=== PATIENT | female | born 1950 | race Caucasian/White ===

== ENCOUNTER 2018-07-15 08:32 | Inpatient (IN) | payer BC, MEDICARE ==
[~2018-07-15 08:32] MED LIST: SEVOFLURANE 15 MIN
[2018-07-15] MEDS: VANCOMYCIN 1 GM (PMX) 250 ML IVPB ×2 (10:06→20:40)
[2018-07-15] MEDS ORDERED: MEPERIDINE 100 MG INJ (10:14)
[2018-07-15] MEDS ORDERED: LIDOCAINE 2% (SDV) 5 ML INJ (10:14)
[2018-07-15] MEDS ORDERED: PROPOFOL 20 ML (10:14)
[2018-07-15] MEDS ORDERED: GLYCOPYRROLATE 0.4 MG INJ ×2 (10:14→11:06)
[2018-07-15] MEDS ORDERED: ROCURONIUM 50 MG INJ (10:14)
[2018-07-15] MEDS ORDERED: SUCCINYLCHOLINE CHLORIDE 100 MG/5 ML SYG IV (10:14)
[2018-07-15] MEDS ORDERED: BUPIVACAINE 0.25% (MPF) 30 ML INJ (10:15)
[2018-07-15] MEDS ORDERED: GELATIN SIZE 100 SPONGE (10:15)
[2018-07-15] MEDS ORDERED: HEPARIN 1000 UNITS/ML 10 ML INJ (10:16)
[2018-07-15] MEDS ORDERED: PROCHLORPERAZINE 10 MG TAB PO (10:30)
[2018-07-15] MEDS ORDERED: DIPHENHYDRAMINE 25 MG CAP PO (10:30)
[2018-07-15] MEDS ORDERED: ONDANSETRON 4 MG INJ IV ×2 (10:30→13:30)
[2018-07-15] MEDS ORDERED: HYDROmorphONE 0.5 MG/0.5 ML SYG IV (10:30)
[2018-07-15] MEDS ORDERED: NALOXONE (0.4 MG/ML) INJ IV (10:30)
[2018-07-15] MEDS ORDERED: CYCLOBENZAPRINE 10 MG TAB PO (10:30)
[2018-07-15] MEDS ORDERED: HYDROCODONE/APAP (5/325) TAB PO (10:30)
[2018-07-15] MEDS: DOCUSATE SODIUM 100 MG CAP PO ×2 (10:30→20:44)
[2018-07-15] MEDS ORDERED: EPHEDrine 25 MG/5 ML SYG (11:06)
[2018-07-15] MEDS ORDERED: NEOSTIGMINE 10 MG INJ (11:06)
[2018-07-15] MEDS: CA CHLORIDE (GM) 10% 10 ML INJ (11:59)
[2018-07-15] MEDS: BUPIVACAINE 0.5%/EPI (SDV) 30 ML INJ (11:59)
[2018-07-15] MEDS: POLYMYXIN/BACITRACIN 1L IRRIG (12:00)
[2018-07-15] MEDS: THROMBIN 5000 UNIT VIAL (12:00)
[2018-07-15] MEDS ORDERED: HYDROmorphONE 1 MG/5 ML IV SYRINGE IV ×3 (13:28→13:30)
[2018-07-15] MEDS ORDERED: MIDAZOLAM 1 MG/ML 2 ML INJ IV (13:30)
[2018-07-15] MEDS ORDERED: OXYCODONE/ACETAMINOPHEN (5/325) TAB PO ×2 (13:30)
[2018-07-15] MEDS ORDERED: MEPERIDINE 25 MG INJ IV (13:30)
[2018-07-15] MEDS ORDERED: LABETALOL HCL 20MG INJ IV (13:30)
[2018-07-15] MEDS ORDERED: METOCLOPRAMIDE 10 MG INJ IV (13:30)
[2018-07-15] MEDS ORDERED: EPHEDrine SULFATE 50 MG/5 ML SYG IV (13:30)
[2018-07-15] MEDS ORDERED: FENTAnyl 50 MCG/ML VIAL IV ×2 (13:30)
[2018-07-15] MEDS ORDERED: DIPHENHYDRAMINE 50 MG INJ IV (13:30)
[2018-07-15] MEDS ORDERED: hydrALAzine 20 MG INJ IV (13:30)
[2018-07-15] MEDS ORDERED: LORAZEPAM 2 MG INJ (13:50)
[2018-07-15] MEDS: HYDROmorphONE 1 MG/5 ML IV SYRINGE IV (14:14)
[2018-07-15] MEDS: DIPHENHYDRAMINE 50 MG INJ IV (14:15)
[2018-07-15] MEDS: FENTAnyl 50 MCG/ML VIAL IV (14:15)
[2018-07-15] MEDS: LORAZEPAM 2 MG INJ IV (14:22)
[2018-07-15] MEDS ORDERED: ONDANSETRON 4 MG INJ (14:37)
[2018-07-15] MEDS ORDERED: METOCLOPRAMIDE 10 MG INJ (14:37)
[2018-07-15] MEDS: MONTELUKAST 10 MG TAB PO (20:44)
[2018-07-16] MEDS: HYDROCODONE/APAP (5/325) TAB PO ×2 (02:00→10:52)
[2018-07-16 05:11] LABS: ADD MAN DIFF? NO
[2018-07-16 05:16] LABS: ABNORMAL IP MESSAGE 1; BASOPHILS % 0.2 % (0.0-2.0); EOSINOPHILS # 0.1 10^3/ul (0.0-0.5); EOSINOPHILS % 1.2 % (0.0-7.0); LYMPHOCYTES # 0.6 10^3/ul (0.8-2.9); LYMPHOCYTES % 11.4 % (15.0-51.0); MEAN CORPUSCULAR HEMOGLOBIN 30.5 pg (29.0-33.0); MEAN CORPUSCULAR HGB CONC 33.3 g/dl (32.0-37.0); MEAN CORPUSCULAR VOLUME 91.5 fl (82.0-101.0); MEAN PLATELET VOLUME 10.7 fl (7.4-10.4); MONOCYTE # 0.4 10^3/ul (0.3-0.9); MONOCYTES % 7.4 % (0.0-11.0); NEUTROPHILS % 79.6 % (39.0-77.0); PLATELET COUNT 146 10^3/UL (140-415); RED BLOOD COUNT 3.28 10^6/ul (4.20-5.40); RED CELL DISTRIBUTION WIDTH 12.1 % (11.5-14.5)
[2018-07-16 05:26] LABS: POSITIVE DIFF @See below
[2018-07-16] MEDS: PANTOPRAZOLE (EC) 40 MG TAB PO (05:32)
[2018-07-16 05:58] LABS: ALBUMIN 3.3 g/dl (3.3-4.9); ANION GAP 9 (5-13); BLOOD UREA NITROGEN 30 mg/dl (7-20); CARBON DIOXIDE 25 mmol/L (21-31); CHLORIDE 107 mmol/L (97-110); CREATININE 1.44 mg/dl (0.44-1.00); GLUCOSE 89 mg/dl (70-220); MAGNESIUM 1.8 mg/dl (1.7-2.5); PHOSPHORUS 4.1 mg/dl (2.5-4.9); POTASSIUM 4.4 mmol/L (3.5-5.1); SODIUM 141 mmol/L (135-144)
[2018-07-16] MEDS: CEPASTAT LOZENGE MT ×2 (06:00→20:11)
[2018-07-16] MEDS: LEVOTHYROXINE 75 MCG TAB PO (06:12)
[2018-07-16] MEDS: DULOXETINE 30 MG CAP DR PO (08:23)
[2018-07-16] MEDS: VANCOMYCIN 1 GM (PMX) 250 ML IVPB (08:23)
[2018-07-16] MEDS: FOLIC ACID 1 MG TAB PO (08:23)
[2018-07-16] MEDS: DOCUSATE SODIUM 100 MG CAP PO ×2 (08:23→20:11)
[2018-07-16] MEDS: LOSARTAN 50 MG TAB PO (08:23)
[2018-07-16] MEDS: HYDROXYCHLOROQUINE 200 MG TAB PO (08:24)
[2018-07-16] MEDS: MONTELUKAST 10 MG TAB PO (20:11)
[2018-07-16] MEDS: ACETAMINOPHEN 325 MG TAB PO (20:11)
[2018-07-17] MEDS: HYDROCODONE/APAP (5/325) TAB PO (02:09)
[2018-07-17] MEDS: LEVOTHYROXINE 75 MCG TAB PO (05:20)
[2018-07-17] MEDS: PANTOPRAZOLE (EC) 40 MG TAB PO (05:20)
[2018-07-17 06:12] LABS: ADD MAN DIFF? NO
[2018-07-17 06:25] LABS: WHITE BLOOD COUNT 6.2 10^3/ul (4.8-10.8)
[2018-07-17 06:25] LABS: BASOPHILS % 0.2 % (0.0-2.0); EOSINOPHILS # 0.1 10^3/ul (0.0-0.5); EOSINOPHILS % 2.2 % (0.0-7.0); HEMATOCRIT 28.7 % (37.0-47.0); HEMOGLOBIN 9.9 g/dl (12.0-16.0); LYMPHOCYTES # 0.8 10^3/ul (0.8-2.9); LYMPHOCYTES % 13.2 % (15.0-51.0); MEAN CORPUSCULAR HEMOGLOBIN 30.8 pg (29.0-33.0); MEAN CORPUSCULAR HGB CONC 34.5 g/dl (32.0-37.0); MEAN CORPUSCULAR VOLUME 89.4 fl (82.0-101.0); MEAN PLATELET VOLUME 10.9 fl (7.4-10.4); MONOCYTE # 0.5 10^3/ul (0.3-0.9); MONOCYTES % 8.3 % (0.0-11.0); NEUTROPHIL # 4.7 10^3/ul (1.6-7.5); NEUTROPHILS % 75.8 % (39.0-77.0); PLATELET COUNT 148 10^3/UL (140-415); RED BLOOD COUNT 3.21 10^6/ul (4.20-5.40); RED CELL DISTRIBUTION WIDTH 11.9 % (11.5-14.5)
[2018-07-17 07:15] LABS: ALBUMIN 3.2 g/dl (3.3-4.9); ANION GAP 4 (5-13); BLOOD UREA NITROGEN 26 mg/dl (7-20); CALCIUM 8.9 mg/dl (8.4-10.2); CARBON DIOXIDE 28 mmol/L (21-31); CHLORIDE 105 mmol/L (97-110); CREATININE 1.22 mg/dl (0.44-1.00); GLUCOSE 103 mg/dl (70-220); MAGNESIUM 1.6 mg/dl (1.7-2.5); PHOSPHORUS 3.6 mg/dl (2.5-4.9); POTASSIUM 4.3 mmol/L (3.5-5.1); SODIUM 137 mmol/L (135-144)
== END 2018-07-17 07:20 | disposition home or self-care (01) | DRG 472 ==
LOC: REC 08:32 → MS1 15:17
PROC: 0RG20A0 Fusion of 2 or more Cervical Vertebral Joints with Interbody Fusion Device, Anterior Approach, Anterior Column, Open Approach (ICD-10-PCS; principal; 2018-07-15 10:29)
PROC: 0RT30ZZ Resection of Cervical Vertebral Disc, Open Approach (ICD-10-PCS; 2018-07-15 10:29)
PROC: 4A11X4G Monitoring of Peripheral Nervous Electrical Activity, Intraoperative, External Approach (ICD-10-PCS; 2018-07-15 10:29)
DX: M50.01 Cervical disc disorder with myelopathy, high cervical region (principal); M47.12 Other spondylosis with myelopathy, cervical region; M48.02 Spinal stenosis, cervical region; I12.9 Hypertensive chronic kidney disease with stage 1 through stage 4 chronic kidney disease, or unspecified chronic kidney disease; N18.3 Chronic kidney disease, stage 3 (moderate); B18.2 Chronic viral hepatitis C; F32.9 Major depressive disorder, single episode, unspecified; E03.9 Hypothyroidism, unspecified; I73.00 Raynaud's syndrome without gangrene
CPT/HCPCS: 71045; 72040; 80069; 83735; 85025; 86850; 86900; 86901; 86999; 87086; 88304; 90686; 97116; 97161; 97167